=== PATIENT | female | born 2005 | race Caucasian/White ===

== ENCOUNTER 2024-11-10 17:29 | Emergency (ER) | payer SELFPAY ==
[~2024-11-10] VITALS: Ht 167.6 cm; Wt 60.0 kg
[2024-11-10 17:32] VITALS: BP 136/92; PULSE 78; RESP 16; TEMP 37.1; O2SAT 99
[2024-11-10 18:53] LABS: CLARITY URINE TURBID (CLEAR); COLOR URINE YELLOW (YELLOW); GLUCOSE URINE NEGATIVE (NEGATIVE); KETONES URINE 2+ (NEGATIVE); LEUKOCYTE ESTERASE URINE NEGATIVE (NEGATIVE); NITRITE URINE NEGATIVE (NEGATIVE); OCCULT BLOOD URINE NEGATIVE (NEGATIVE); PROTEIN URINE 1+ (NEGATIVE); SPECIFIC GRAVITY URINE 1.024 (1.005-1.030)
[2024-11-10 19:14] LABS: AMORPHOUS SEDIMENT URINE 1+ /lpf; BACTERIA URINE 4+; RBC URINE 0-2 /hpf (0-2); SQUAMOUS EPITHELIAL CELL URINE 1+ /lpf (RARE/1+); WBC URINE 0-2 /hpf (0-2)
== END 2024-11-11 01:29 | disposition left against medical advice (07) ==
LOC: ER 17:29
DX: R10.9 Unspecified abdominal pain (principal); Z53.21 Procedure and treatment not carried out due to patient leaving prior to being seen by health care provider
CPT/HCPCS: 81003

== ENCOUNTER 2024-11-12 20:24 | Emergency (ER) | payer SELFPAY ==
[~2024-11-12] VITALS: Ht 165.1 cm; Wt 72.9 kg
[2024-11-12 20:41] VITALS: TEMP 36.7; O2SAT 98
[2024-11-12 21:04] LABS: BASOPHILS % 0.5 % (0.0-2.0); EOSINOPHILS % 0.8 % (0.0-5.0); HEMATOCRIT. 40.3 % (36.0-48.0); HEMOGLOBIN. 13.5 g/dL (12.0-16.0); LYMPHOCYTES % 19.2 % (20.0-50.0); MEAN CORPUSCULAR HEMOGLOBIN 26.8 pg (28.0-32.0); MEAN CORPUSCULAR HGB CONC 33.4 g/dL (31.0-37.0); MEAN CORPUSCULAR VOLUME 80.3 fL (81.0-99.0); MEAN PLATELET VOLUME 8.2 fl (7.4-10.4); MONOCYTES % 11.1 % (2.0-8.0); NEUTROPHILS % 68.4 % (40.0-76.0); PLATELET 358 x1000/uL (130-400); RED BLOOD CELL COUNT 5.02 mill/uL (4.2-5.4); RED CELL DISTRIBUTION WIDTH 13.7 % (11.6-14.6); WHITE BLOOD COUNT 10.5 x1000/uL (4.5-11.0)
[2024-11-12 21:13] LABS: CHLORIDE 102 mEq/L (98-107); POTASSIUM 3.6 mEq/L (3.5-5.1); SODIUM 137 mEq/L (136-145)
[2024-11-12 21:14] LABS: CALCIUM 9.8 mg/dL (8.7-10.4); CARBON DIOXIDE 29 mEq/L (21-32)
[2024-11-12 21:19] LABS: CREATININE 0.8 mg/dL (0.6-1.0); GLUCOSE 101 mg/dL (70-105); UREA NITROGEN BLOOD 12 mg/dL (9-23)
[2024-11-12 21:21] LABS: ALANINE AMINOTRANSFERASE 23 IU/L (10-49); ALBUMIN 4.8 g/dL (3.2-4.8); ASPARTATE AMINOTRANSFERASE 15 IU/L (<34); BILIRUBIN DIRECT 0.2 mg/dL (<=3.0); BILIRUBIN TOTAL 0.7 mg/dL (0.1-1.0)
[2024-11-12] MEDS ORDERED: ACETAMINOPHEN 500MG TABLET PO ONE (22:30)
[2024-11-12] MEDS ORDERED: ONDANSETRON HCL 4MG TABLET PO ONE (22:30)
[2024-11-12 23:09] LABS: HCG SCREEN NEGATIVE
[2024-11-12 23:20] LABS: GLUCOSE URINE NEGATIVE (NEGATIVE); KETONES URINE TRACE (NEGATIVE); LEUKOCYTE ESTERASE URINE 1+ (NEGATIVE); NITRITE URINE NEGATIVE (NEGATIVE); OCCULT BLOOD URINE 3+ (NEGATIVE); PH URINE 6.5 (4.5-8.0); PROTEIN URINE 2+ (NEGATIVE); SPECIFIC GRAVITY URINE 1.027 (1.005-1.030)
[2024-11-13] MEDS ORDERED: CEPH500C2 MT (00:14)
[2024-11-13] MEDS ORDERED: NAPR-1176 MT (00:14)
[2024-11-13 00:20] LABS: CLARITY URINE BLOODY (CLEAR); COLOR URINE RED (YELLOW)
[2024-11-13 00:24] LABS: RBC URINE TNTC /hpf (0-2)
[2024-11-13 00:25] LABS: BACTERIA URINE TRACE; SQUAMOUS EPITHELIAL CELL URINE FEW /lpf (RARE/1+)
[2024-11-13] MEDS: ONDANSETRON HCL 4MG TABLET PO NR (00:41)
[2024-11-13] MEDS: ACETAMINOPHEN 500MG TABLET PO NR (00:42)
[2024-11-13 00:44] VITALS: BP 124/82; PULSE 82; RESP 14; O2SAT 100
== END 2024-11-13 00:51 | disposition home or self-care (01) ==
LOC: ER 20:24
DX: K80.20 Calculus of gallbladder without cholecystitis without obstruction (principal); N39.0 Urinary tract infection, site not specified; Z79.1 Long term (current) use of non-steroidal anti-inflammatories (NSAID)
CPT/HCPCS: 99284; 76705; 80076; 80048; 81003; 84703; 83690; 85025; 86850; 86900; 86901; 36415; Q0162

== ENCOUNTER 2025-01-11 01:17 | Emergency (ER) | payer SELFPAY ==
[~2025-01-11] VITALS: Ht 157.5 cm; Wt 75.0 kg
[~2025-01-11 01:17] MED LIST: CEPH500C2 MT; NAPR-1176 MT
[2025-01-11 01:23] VITALS: O2SAT 99
[2025-01-11 01:54] LABS: CLARITY URINE CLEAR (CLEAR); COLOR URINE YELLOW (YELLOW); GLUCOSE URINE NEGATIVE (NEGATIVE); KETONES URINE TRACE (NEGATIVE); LEUKOCYTE ESTERASE URINE NEGATIVE (NEGATIVE); NITRITE URINE NEGATIVE (NEGATIVE); OCCULT BLOOD URINE 3+ (NEGATIVE); PH URINE 6.0 (4.5-8.0); PROTEIN URINE NEGATIVE (NEGATIVE); SPECIFIC GRAVITY URINE 1.029 (1.005-1.030); UROBILINOGEN URINE 0.2 E.U./dL (0.2-1.0)
[2025-01-11 02:02] LABS: BASOPHILS % 0.5 % (0.0-2.0); EOSINOPHILS % 4.6 % (0.0-5.0); HEMATOCRIT. 36.8 % (36.0-48.0); HEMOGLOBIN. 12.1 g/dL (12.0-16.0); LYMPHOCYTES % 28.9 % (20.0-50.0); MEAN PLATELET VOLUME 8.0 fl (7.4-10.4); MONOCYTES % 7.7 % (2.0-8.0); NEUTROPHILS % 58.3 % (40.0-76.0); PLATELET 387 x1000/uL (130-400); RED BLOOD CELL COUNT 4.59 mill/uL (4.2-5.4); RED CELL DISTRIBUTION WIDTH 14.6 % (11.6-14.6)
[2025-01-11 02:16] LABS: CREATININE 0.7 mg/dL (0.6-1.0); ETHANOL BLOOD < 10 mg/dL (<10); HCG SCREEN NEGATIVE; UREA NITROGEN BLOOD 17 mg/dL (9-23)
[2025-01-11 02:18] LABS: ASPARTATE AMINOTRANSFERASE 16 IU/L (<34); BILIRUBIN DIRECT 0.1 mg/dL (<=3.0); BILIRUBIN TOTAL 0.3 mg/dL (0.1-1.0); PROTEIN TOTAL 7.3 g/dL (6.0-8.3)
[2025-01-11 02:19] LABS: INR 1.0
[2025-01-11 02:47] LABS: SQUAMOUS EPITHELIAL CELL URINE 2+ /lpf (RARE/1+)
[2025-01-11 02:48] LABS: BACTERIA URINE TRACE; WBC URINE 0-2 /hpf (0-2)
[2025-01-11] MEDS: ONDANSETRON HCL 4MG/2ML INJ IV NR (03:46)
[2025-01-11] MEDS: KETOROLAC 15MG/ML VIAL IV NR (03:47)
[2025-01-11] MEDS: SODIUM CHLORIDE 0.9% 1,000 ML IV ONE (03:47)
[2025-01-11] MEDS ORDERED: ONDA4TAB50 MT (04:50)
[2025-01-11] MEDS ORDERED: IBUP-2029 MT (04:50)
[2025-01-11 05:14] VITALS: BP 130/76; PULSE 68; RESP 18; TEMP 36.6; O2SAT 100
== END 2025-01-11 05:19 | disposition left against medical advice (07) ==
LOC: ER 01:25 → CANBEDREQ 04:48 → ER 05:19
DX: K80.20 Calculus of gallbladder without cholecystitis without obstruction (principal); F19.90 Other psychoactive substance use, unspecified, uncomplicated
CPT/HCPCS: 80076; 80048; 81003; 80320; 84703; 83690; 85025; 85610; 36415; 76705; 96361; 96374; 96375; 99285; J1885; J2405; Z7610 ×3; G0480